=== PATIENT | male | born 1980 | race African-American/Black ===

== ENCOUNTER 2020-08-17 12:01 | Emergency (ER) | payer MEDICAID ==
[~2020-08-17] VITALS: Ht 180.3 cm; Wt 133.3 kg
[2020-08-17 12:35] VITALS: BP 94/39
[2020-08-17 12:40] LABS: ABG A-A DIFF O2 568.9 mmHg (10-20.0); ABG BASE EXCESS -21.7 mmol/L (-2.0-3.0); ABG CARBOXYHEMOGLOBIN 0.6 % (0.0-1.5); ABG METHEMOGLOBIN 0.2 % (0.0-1.5); ABG OXYHEMOGLOBIN 63.1 % (94.0-100.0); ABG TOTAL HEMOGLOBIN 15.8 G/dL (12.0-18.0); SOURCE, BLOOD GAS ARTERIAL
[2020-08-17 12:42] LABS: ABG HCO3 7.3 mmol/L (22.0-26.0); ABG PCO2 115 mmHg (35-45); ABG PH 6.697 (7.35-7.450); PO2, ARTERIAL BG 38.8 mmHg (66.0-74.0)
[2020-08-17 12:43] LABS: ABG OXYGEN SATURATION 63.6 % (95.0-98.0); O2 DEVICE,BLOOD GAS VENTILATOR (ROOM AIR); PEEP,BG 5 cm H2O; SITE, BLOOD GAS RT FEMORAL; SPONTANEOUS VT, BG 500 ml; VT, ABG 500 ml
[2020-08-17] MEDS ORDERED: ALBUTEROL SULFATE 5 MG/ML 20 ML NEB SOLN [BULK] NEB ONE ×2 (12:54→13:00)
[2020-08-17 13:09] LABS: ANION GAP 32 mmol/L (8-16); CARBON DIOXIDE 15 mmol/L (22-29); CHLORIDE 105 mmol/L (98-107); POTASSIUM 4.4 mmol/L (3.5-5.1); SODIUM SERUM 152 mmol/L (136-145)
[2020-08-17 13:10] LABS: CREATININE 5.05 mg/dL (0.60-1.30); GLOMERULAR FILTR. RATE CALC 10 mL/min (>60); UREA NITROGEN, BLOOD 80 mg/dL (7-18)
[2020-08-17 13:11] LABS: LACTIC ACID 13.8 mmol/L (0.4-2.0)
[2020-08-17 13:12] LABS: SALICYLATE 2.1 mg/dL (2.8-20.0)
[2020-08-17] MEDS ORDERED: DEXTROSE 50%-WATER 25 GM/50 ML SYRINGE IVP PRN ×2 (13:15→15:45)
[2020-08-17] MEDS ORDERED: INSULIN REGULAR, HUMAN 100 UNITS/ML IVP PRN ×2 (13:15→15:45)
[2020-08-17] MEDS ORDERED: DEXTROSE 5%-0.45% SODIUM CHL 1,000 ML IV PRN ×2 (13:15→16:00)
[2020-08-17] MEDS ORDERED: SODIUM CHLORIDE 0.9% 1,000 ML IV SCH ×2 (13:15→15:45)
[2020-08-17] MEDS ORDERED: SODIUM CHLORIDE 0.45% 1,000 ML IV PRN ×2 (13:15→15:45)
[2020-08-17] MEDS ORDERED: INSULIN REGULAR, HUMAN 100 UNITS/ML IVP ONE (13:15)
[2020-08-17] MEDS ORDERED: INSULIN REGULAR, HUMAN 100 UNITS in SODIUM CHLORIDE 0.9% 99 ML IV PRN ×4 (13:15→15:45)
[2020-08-17] MEDS ORDERED: POTASSIUM CHLORIDE 40 MEQ in SODIUM CHLORIDE 0.45% 1,000 ML IV PRN ×2 (13:15→16:00)
[2020-08-17] MEDS ORDERED: POTASSIUM CHL 20 MEQ/0.45% NS 1,000 ML IV PRN ×2 (13:15→15:45)
[2020-08-17 13:36] LABS: CALCIUM, TOTAL 11.5 mg/dL (8.8-10.5)
[2020-08-17 13:37] LABS: ALANINE AMINOTRANSFERASE 341 U/L (12-78); ALBUMIN 1.8 g/dL (3.4-5.0); ALKALINE PHOSPHATASE 169 U/L (46-116); ASPARTATE AMINOTRANSFERASE 1116 U/L (15-37); BILIRUBIN,TOTAL 0.4 mg/dL (0.1-1.0); TOTAL PROTEIN, SERUM 5.1 g/dL (6.4-8.2)
[2020-08-17] MEDS ORDERED: PHENYLEPHRINE HCL IN 0.9% NACL 400 MCG/10 ML SYRINGE IVP ONE (13:41)
[2020-08-17 13:42] LABS: PHOSPHORUS 20.1 mg/dL (2.5-4.9)
[2020-08-17] MEDS ORDERED: NOREPINEPHRINE 4 MG/D5%-WATER 250 ML IV PRN ×2 (13:45→16:00)
[2020-08-17] MEDS ORDERED: PHENYLEPHRINE 200 MG/D5%-WATER 250 ML IV PRN ×2 (13:45→16:00)
[2020-08-17] MEDS ORDERED: DOPamine HCL 400 MG/D5%-WATER 250 ML IV PRN ×2 (13:45→16:00)
[2020-08-17] MEDS ORDERED: 0.9% SODIUM CHLORIDE 10 ML SYRINGE IVP PRN (13:45)
[2020-08-17 13:46] LABS: B-TYPE NATRIURETIC PEPTIDE 51 pg/mL (0-100)
[2020-08-17 13:47] LABS: GLUCOSE,RANDOM 1663 mg/dL (70-110)
[2020-08-17 13:58] LABS: BASOPHILS % (AUTO) 0.7 % (0.0-2.0); EOSINOPHILS % (AUTO) 0.2 % (1.0-6.0); HEMATOCRIT 54.3 % (41-53); HEMOGLOBIN 14.9 g/dL (13.5-17.5); LYMPHOCYTES # (AUTO) 5.2 K/uL (1.0-4.8); LYMPHOCYTES % (AUTO) 30.8 % (22.0-44.0); MEAN CORPUSCULAR HEMOGLOBIN 28.4 pg (26.0-34.0); MEAN CORPUSCULAR HGB CONC 27.5 G/dL (31.0-37.0); MEAN CORPUSCULAR VOLUME 103 fL (80-100); MONOCYTES # (AUTO) 0.4 K/uL (0.1-1.0); MONOCYTES % (AUTO) 2.5 % (2.0-9.0); NEUTROPHILS # (AUTO) 11.1 K/uL (1.8-7.7); NEUTROPHILS % (AUTO) 65.8 % (40.0-70.0); PLATELET COUNT (AUTO) 235 K/uL (150-450); RED BLOOD CELL COUNT(AUTO) 5.26 MIL/uL (4.50-5.90); RED CELL DISTRIBUTION WIDTH 18.7 % (11.5-14.5)
[2020-08-17] MEDS ORDERED: SODIUM CHLORIDE 0.9% 2,200 ML IV ONE (14:00)
[2020-08-17 14:08] LABS: CREATINE KINASE, TOTAL ONLY 200 U/L (39-308); THYROID STIMULATING HORMONE 7.46 uIU/mL (0.36-3.74)
[2020-08-17 14:28] LABS: ACETAMINOPHEN 4 mcg/mL (10-30); CREATINE KINASE, TOTAL ONLY 200 U/L (39-308); THYROID STIMULATING HORMONE 7.46 uIU/mL (0.36-3.74)
[2020-08-17] MEDS ORDERED: LEVOTHYROXINE SODIUM 100 MCG VIAL IVP SCH (14:30)
[2020-08-17] MEDS ORDERED: *CLINICAL-CEFEPIME DOSING CLINICAL ONE (14:30)
[2020-08-17] MEDS ORDERED: RIFAXIMIN 550 MG TABLET NG SCH (14:30)
[2020-08-17 14:36] LABS: ABG A-A DIFF O2 575.6 mmHg (10-20.0); ABG BASE EXCESS -27.7 mmol/L (-2.0-3.0); ABG CARBOXYHEMOGLOBIN 0.3 % (0.0-1.5); ABG METHEMOGLOBIN 0.3 % (0.0-1.5); ABG OXYGEN CONTENT 18.6 mL/dL (15.0-23.0); ABG OXYHEMOGLOBIN 89.5 % (94.0-100.0); ABG TOTAL HEMOGLOBIN 14.7 G/dL (12.0-18.0); PO2, ARTERIAL BG 69.1 mmHg (92.0-100.0); SOURCE, BLOOD GAS ARTERIAL; TEMPERATURE, FAHRENHEIT, BG 89.9 FAHREN (96.0-98.6)
[2020-08-17 14:37] LABS: ABG HCO3 5.3 mmol/L (22.0-26.0); ABG PCO2 79 mmHg (35-45); ABG PH 6.663 (7.350-7.450); SITE, BLOOD GAS ARTERIAL LINE
[2020-08-17 14:38] LABS: O2 DEVICE,BLOOD GAS VENTILATOR (ROOM AIR); PEEP,BG 12 cm H2O; SPONTANEOUS VT, BG 483 ml; VT, ABG 500 ml
[2020-08-17 14:41] LABS: CALCIUM, TOTAL 9.3 mg/dL (8.8-10.5); CREATININE 5.16 mg/dL (0.60-1.30); POTASSIUM 3.5 mmol/L (3.5-5.1)
[2020-08-17] MEDS ORDERED: SODIUM BICARBONATE 150 MEQ in SODIUM CHLORIDE 0.9% 1,000 ML IV ONE (14:45)
[2020-08-17] MEDS ORDERED: VASOPRESSIN 40 UNITS in DEXTROSE 5%-WATER 98 ML IV PRN (15:00)
[2020-08-17] MEDS ORDERED: BISACODYL 10 MG RECTAL RECTAL SUPPOSITORY PR PRN (15:15)
[2020-08-17] MEDS ORDERED: IPRATROPIUM BROMIDE 0.5 MG/2.5 ML NEB SOLUTION NEB PRN (15:15)
[2020-08-17] MEDS ORDERED: VANCOMYCIN HCL 1.5 GM in DEXTROSE 5%-WATER 250 ML IV ONE (15:15)
[2020-08-17] MEDS ORDERED: ALBUTEROL SULFATE 2.5 MG/0.5 ML NEB SOLUTION NEB PRN (15:15)
[2020-08-17] MEDS ORDERED: ONDANSETRON HCL 4 MG/2 ML VIAL IVP PRN (15:15)
[2020-08-17] MEDS ORDERED: VANCOMYCIN HCL 1 GM/D5% WATER 200 ML IV PRN (15:30)
[2020-08-17 15:51] LABS: GLUCOSE,POINT OF CARE > 600 MG/DL (70-110)
[2020-08-17] MEDS ORDERED: MetroNIDAZOLE 500 MG/NACL 100 ML IV SCH (16:00)
[2020-08-17] MEDS ORDERED: HYDROCORTISONE SOD SUCC 100 MG/2 ML VIAL IVP SCH (16:00)
[2020-08-17] MEDS ORDERED: CEFEPIME HCL 1 GM in DEXTROSE 5%-WATER 50 ML IV SCH (16:00)
[2020-08-17] MEDS ORDERED: CEFEPIME HCL 2 GM in DEXTROSE 5%-WATER 50 ML IV SCH (16:00)
[2020-08-17 16:02] VITALS: BP 0/0
[2020-08-17 16:20] LABS: PROTHROMBIN TIME 20.5 SEC (9.4-11.6)
[2020-08-17] MEDS ORDERED: NALOXONE HCL 1 MG/ML 2 ML SYG ONE (16:39)
[2020-08-17] MEDS ORDERED: 0.9% SODIUM CHLORIDE 10 ML SYRINGE IVP ONE (16:39)
[2020-08-17] MEDS ORDERED: DOPamine HCL/D5W 400 MG/250 ML IV BAG IV ONE (16:39)
[2020-08-17] MEDS ORDERED: SODIUM BICARBONATE [ADULT] 8.4% 50 MEQ/50 ML SYRINGE IVP ONE (16:39)
[2020-08-17] MEDS ORDERED: CALCIUM CHLORIDE 100 MG/ML 10 ML SYRINGE IVP ONE (16:39)
[2020-08-17] MEDS ORDERED: EPINEPHrine 1:10,000 [1 MG/10 ML] SYRINGE ONE (16:39)
[2020-08-17] MEDS ORDERED: DEXTROSE 50%-WATER 25 GM/50 ML SYRINGE IVP ONE (16:39)
[2020-08-17] MEDS ORDERED: ATROPINE SULFATE 0.1 MG/ML 10 ML SYRINGE IVP ONE (16:39)
[2020-08-17] MEDS ORDERED: LACTULOSE 20 GM/30 ML SOLUTION UDCUP NG SCH (18:00)
[2020-08-17] MEDS ORDERED: PANTOPRAZOLE SODIUM 40 MG/VIAL IVP SCH (21:00)
[2020-08-18] MEDS ORDERED: ASPIRIN 81 MG CHEWABLE TABLET NG SCH (09:00)
== END 2020-08-17 18:40 ==
LOC: EMS 12:01 → EDBD 12:01 → EMS 18:40
DX: I46.9 Cardiac arrest, cause unspecified (principal)
CPT/HCPCS: 31500; 36415; 36430; 36556; 36600; 71045; 80053; 82140; 82270; 82550; 82805; 82962; 83605; 83735; 83880; 84100; 84145; 84443; 84484; 85025; 85610; 85730; 86850; 86900; 86901; 86923; 87040; 87205; 92950; 93005; 99291; 99292; G0480; J0171; J0461; J1265; J1815; J2310; J2370; J3370; J3490 ×4; J7030; J7050; J7060 ×2; P9016; X7700; 94002; A9575; G0481; J0692; J7611